=== PATIENT | female | born 1985 | race Caucasian/White ===

== ENCOUNTER 2020-01-11 15:25 | Outpatient (CLI) | payer OTHER ==
--- NOTE | 2020-01-11 16:13 | RAD ---
Lumbar spine 2 views HISTORY: Low back pain. FINDINGS: There are 5 lumbar type vertebrae. 8 degrees rightward convex curvature on the frontal view . Vertebral body heights and AP alignment are maintained. Mild osteophytosis of the lower facets. Osteophytosis of the sacroiliac joints evident. IMPRESSION : No acute osseous abnormalities are demonstrated. Mild right convex curvature.
--- NOTE | 2020-01-11 16:14 | RAD ---
Sacroiliac joints 3 views HISTORY: Pain. FINDINGS: Sacral alae are intact. Mild osteophytosis of each sacroiliac joint. Joint spaces are prese rved. No aggressive erosions. Contraceptive device projects over the uterus. IMPRESSION : Mild osteophytosis of the sacroiliac joints. No acute osseous abnormalities are demonstrated.
== END 2020-01-11 15:26 | disposition home or self-care (01) ==
LOC: BICRAD 15:25
PROVIDERS: ATTEND Internal Medicine
DX: M46.1 Sacroiliitis, not elsewhere classified (principal); M54.16 Radiculopathy, lumbar region; M25.78 Osteophyte, vertebrae; M43.9 Deforming dorsopathy, unspecified
CPT/HCPCS: 72100; 72202

== ENCOUNTER 2020-04-26 13:59 | Outpatient (CLI) | payer OTHER ==
[2020-04-26 16:19] LABS: Hemoglobin 14.3 g/dL (12.0-16.0); Mean Corpuscular HGB CONC 34.6 g/dL (32.0-36.0); Mean Corpuscular Volume 86.8 fL (78.0-98.0); Platelet Count 332 thou/uL (130-400); RBC Distribution Width 11.8 % (11.5-14.5); Red Blood Cell (RBC) Count 4.76 mill/uL (4.20-5.40); White Blood Cell (WBC) Count 10.3 thou/uL (4.8-10.8)
[2020-04-26 16:25] LABS: BHCG - Serum Negative (NEGATIVE); Pregs Control Background? CLEAR/WHITE (CLR/WHITE); Pregs Control Bar Appear? YES (CONTROL BAR)
[2020-04-26 16:39] LABS: INR-International Normal Ratio 0.9; Prothrombin Time 12.4 sec (12.0-14.7)
[2020-04-26 16:40] LABS: PTT 31.1 sec (22.9-36.1)
[2020-04-27 12:54] LABS: SARS-CoV-2 MS2 Positive; SARS-CoV-2 N Gene Negative; SARS-CoV-2 S Gene Negative; SARS-CoV-2 by NAA Not Detected (NotDetected); SARS-CoV-2 orf1ab Negative
== END 2020-04-26 14:00 | disposition home or self-care (01) ==
LOC: LABBT 13:59
PROVIDERS: ATTEND Neurological Surgery
DX: Z01.812 Encounter for preprocedural laboratory examination (principal); Z20.828 Contact with and (suspected) exposure to other viral communicable diseases; M51.16 Intervertebral disc disorders with radiculopathy, lumbar region
CPT/HCPCS: 84703; 85027; 85610; 85730; 87635; U0003

== ENCOUNTER 2020-04-29 06:53 | Day surgery (SDC) | payer OTHER ==
[2020-04-27 10:54] VITALS: BMI 35.7
--- NOTE | 2020-04-27 20:34 | HP ---
REASON FOR H AND P: Surgery on 04/29/2020, case #[id number]. HISTORY OF PRESENT ILLNESS: Ms. Bansal is a 34-year-old female with a chief complaint of lower back and left leg pain. Her pain radiates into her left gluteal muscle. Her anterior thigh and plantar feet affecting her three small toes. Symptoms started about 17 years ago related to playing sports. This past December, she said she bent over and twisted, picking up her 35 pounds daughter and felt a pop in her lower back. Currently, she can only walk about 1 to 2 blocks and has increased weakness in her left leg. This weakness is causing her to stumble more frequently. She has tried injections and physical therapy, but has not had any lasting relief. Her pain primarily runs in the S1 distribution on the left. She denies any bladder or bowel discomfort. REVIEW OF SYSTEMS: CONSTITUTIONAL: Denies fever or chills. ENT: Denies change in vision or hearing. CARDIAC: Denies chest pain, shortness of breath, or diaphoresis. PULMONARY: Denies shortness of breath, cough, or hemoptysis. GI: Denies abdominal pain, nausea, vomiting, diarrhea, or change in stool formation and consistency. : Denies trouble with urination, frequency of urination, or bloody urine. SKIN: Denies skin rash, bruising, bleeding, or skin masses. MUSCULOSKELETAL: As per history of present illness. NEUROLOGIC: As per history of present illness. PSYCHOLOGIC: Denies anxiety, depression, or behavior changes. MEDICAL HISTORY: Anxiety, depression, seasonal allergies, or asthma. SURGICAL HISTORY: Pin in right wrist at age 8, scope and removal of the right shoulder age 18, deviated septum and nasal polyps age 19, and tonsillectomy and adenoidectomy in 2014. HOSPITALIZATIONS: Childbirth x3; 2012, 2014, and 2018. FAMILY HISTORY: Father alive, diagnosed with hypertension. Mother alive, diagnosed with anxiety, OCD, mental illness. Siblings alive. Children alive, one son and two daughters, healthy. SOCIAL HISTORY: Former smoker. Social smoker. Occasionally social drinker, less than one drink a day. Denies illicit drug use. MEDICATIONS: 1. Tizanidine 2 mg. 2. Tramadol 50 mg. 3. Sertraline 100 mg. 4. Hydroxyzine 50 mg. 5. Alprazolam 0.5 mg. ALLERGIES: SULFA; VOMITING, FEVER, AND RASH. CODEINE; VOMITING, FEVER, AND RASH. KEFLEX, RASH. PHYSICAL EXAMINATION: VITAL SIGNS: Weight 232 pounds, height 68 inches, and BMI 35.27. HEENT: Pupils are equal. Extraocular movements are intact. NECK: Soft and supple. No masses are noted. Range of motion is intact and nonpainful. NEUROLOGIC: Awake, alert, and oriented x3. Memory, attention, and fund of knowledge normal. Cranial nerves grossly intact. Gait and station are normal. Motor exam, mild EHL weakness. Some TF weakness on the left. Sensory exam showed loss in S1, left. IMAGING: MRI of the lumbar spine L4-L5 and L5-S1 disk, herniated lumbar disk protrusion, center of the canal resulting in lateral recess stenosis. X-ray; flexion and extension stable. ASSESSMENT: 1. Lumbar radiculopathy. 2. Bulging lumbar disk. PLAN: 1. Laminectomy, L4-L5 and L5-S1. 2. Preop labs; CBC, PT, PTT, and COVID-19. 3. She will quit nicotine 1 month prior to surgery. INFORMED CONSENT: We discussed the indications, risks, benefits, alternatives, and expected results from surgery. The risks discussed included, but were not limited to, bleeding, infection, CSF leak, nerve damage, weakness, incontinence, cauda equina injury, arachnoiditis, paralysis, ventilator dependency, wheelchair dependency, loss of vision, cardiopulmonary complications of anesthesia or . Long-term complications discussed included, but were not limited to spinal instability and future surgery. She understands the risks and is willing to proceed. Job ID: [id number]
[2020-04-29] MEDS ORDERED: Levofloxacin 500 mg/D5W 100 ml Premix Bag ONE (07:49)
[2020-04-29] MEDS ORDERED: Clindamycin/D5W 900 mg/50 ml Premix Bag ONE ×2 (07:49→14:37)
[2020-04-29] MEDS ORDERED: Scopolamine 1.5 mg/72 hour Patch ONE (08:03)
[2020-04-29] MEDS ORDERED: EPINEPHrine 1 MG/ML AMP ONE (08:06)
[2020-04-29] MEDS ORDERED: Bupivacaine PF 0.5% 30 ML VIAL ONE (08:06)
[2020-04-29] MEDS ORDERED: Thrombin 5000 UNITS/5 ML VIAL ONE (08:06)
[2020-04-29] MEDS ORDERED: Lidocaine 2% Jelly 5 ML TUBE ONE (08:54)
[2020-04-29] MEDS ORDERED: Midazolam HCl 2 mg/2 ml Vial ONE (08:54)
[2020-04-29] MEDS ORDERED: Fentanyl 100 MCG/2 ML VIAL ONE ×2 (08:54→12:25)
[2020-04-29] MEDS ORDERED: HYDROmorphone 0.5 MG/0.5 ML SYRINGE ONE (08:54)
[2020-04-29] MEDS ORDERED: PROPOFOL 200 MG/20 ML VIAL ONE (09:18)
[2020-04-29] MEDS ORDERED: Dexamethasone 20 MG/5 ML VIAL ONE (09:18)
[2020-04-29] MEDS ORDERED: Lidocaine 1% PF 5 ML VIAL ONE (09:18)
[2020-04-29] MEDS ORDERED: Ondansetron PF 4 MG/2 ML Vial ONE ×2 (09:18→12:05)
[2020-04-29] MEDS ORDERED: Glycopyrrolate 0.2 MG/ML 5 ML SYRINGE ONE (09:18)
[2020-04-29] MEDS ORDERED: Rocuronium Bromide 10 MG/ML (10ML VIAL) ONE (09:18)
[2020-04-29] MEDS ORDERED: Promethazine HCl 25 MG/ML VIAL ONE (11:52)
[2020-04-29] MEDS ORDERED: Meperidine HCl/PF 25 MG/ML VIAL ONE (11:54)
[2020-04-29] MEDS ORDERED: Ketorolac Tromethamine 30 MG/ML VIAL ONE (12:09)
[2020-04-29] MEDS ORDERED: tiZANidine HCl 4 MG TAB ONE (13:25)
[2020-04-29] MEDS ORDERED: Morphine 2 MG/ML VIAL ONE ×2 (13:43→13:57)
--- NOTE | 2020-04-29 15:46 | OP ---
DATE OF PROCEDURE: 04/29/2020 MAINTENANCE CLERK: Joseph Montgomery PA-C PREOPERATIVE INDICATION: Treat pain and prevent neurological deterioration. PREOPERATIVE DIAGNOSIS: Lateral recess stenosis at L4-L5 and L5-S1 with neurogenic claudication. POSTOPERATIVE DIAGNOSIS: Lateral recess stenosis at L4-L5 and L5-S1 with neurogenic claudication. PROCEDURES PERFORMED: Decompressive laminectomy with medial facetectomy and foraminotomy at L3-L4 and L4-L5. PREOPERATIVE MEDICATIONS: Ancef 2 g IV. DRAIN NUMBER: Zero. DRAIN TYPE: None. DESCRIPTION OF PROCEDURE: The patient was brought to the operating room. General endotracheal anesthesia was induced. The patient was positioned prone on the operating table. The chest and hips were supported by gel-filled chest rolls. A lateral fluoro radiograph was used to plan our incision. The lumbar skin was sterilely prepped and draped. We opened with a 10 blade knife and we controlled bleeding with bipolar and monopolar cautery. We used monopolar cautery to dissect through subcutaneous tissues to the thoracodorsal fascia. We incised the fascia in the midline and we reflected the paraspinal muscles off the spinous process and lamina of L4, L5, and S1. A self-retaining retractor was placed and a lateral fluoro radiograph confirmed the levels upon which we were operating. We then used an Adson rongeur to remove the spinous process of L4, L5 and the top of the sacrum. Kerrison rongeurs were used to fashion a laminectomy down the midline. We widened our laminectomy defect. In order for the L5 and S1 nerve roots to be decompressed in the lateral recess, we had to perform medial facetectomies with Kerrison rongeurs. We performed foraminotomies over the exit points of the nerves as well. At the completion of our decompression, the nerves no longer had any impingement. We irrigated with bacitracin irrigation. We waxed the bone edges. We infused local anesthetic in the paraspinal muscles. We irrigated once again with bacitracin irrigation. Then, we closed after applied vancomycin powder to the wound. We applied a sterile dressing. This was a clean case, no contamination. Job ID: [id number]
== END 2020-04-29 16:00 | disposition home or self-care (01) ==
LOC: SDC 06:53
PROVIDERS: ATTEND Neurological Surgery
PROC: 01NB0ZZ Release Lumbar Nerve, Open Approach (ICD-10-PCS; principal; 2020-04-29)
DX: M48.062 Spinal stenosis, lumbar region with neurogenic claudication (principal); M48.07 Spinal stenosis, lumbosacral region; M51.16 Intervertebral disc disorders with radiculopathy, lumbar region; M51.17 Intervertebral disc disorders with radiculopathy, lumbosacral region; F41.9 Anxiety disorder, unspecified; F32.9 Major depressive disorder, single episode, unspecified; J45.909 Unspecified asthma, uncomplicated; Z79.899 Other long term (current) drug therapy; Z87.891 Personal history of nicotine dependence; Z88.1 Allergy status to other antibiotic agents; Z88.2 Allergy status to sulfonamides; Z88.5 Allergy status to narcotic agent
CPT/HCPCS: 76000; J0171; J1100; J1170; J1885; J1956; J2175; J2250; J2270; J2405; J2550; J2704; J3010; J3370; J3490; S0020

== ENCOUNTER 2021-01-12 09:00 | Outpatient (CLI) | payer BC | END 2021-01-12 09:01 | disposition home or self-care (01) | LOC: BICRAD 09:00 | PROVIDERS: ATTEND Internal Medicine | DX: M54.30 Sciatica, unspecified side (principal) | CPT/HCPCS: 72100 ==

== ENCOUNTER 2021-02-26 16:34 | Emergency (ER) | payer BC ==
[2021-02-26] MEDS ORDERED: Morphine 4 MG/ML VIAL ONE (17:10)
[2021-02-26 17:19] LABS: #Eosinphils 0.2 thou/uL (0.0-0.7); #Lymphocytes 2.3 thou/uL (1.20-3.40); #Monocytes 0.7 thou/uL (0.11-0.59); #Neutrophils 5.6 thou/uL (1.40-6.50); %Basophils 0.3 % (0.0-1.0); %Eosinophils 2.1 % (0.0-10.0); %Lymphocytes 26.3 % (21.0-51.0); %Monocytes 7.9 % (0.0-10.0); %Neutrophils 63.3 % (42.0-75.0); Hemoglobin 13.6 g/dL (12.0-16.0); Mean Corpuscular HGB CONC 35.5 g/dL (32.0-36.0); Mean Corpuscular Volume 87.3 fL (78.0-98.0); Mean Platelet Volume 7.5 fL (7.4-10.4); Platelet Count 288 thou/uL (130-400); Red Blood Cell (RBC) Count 4.39 mill/uL (4.20-5.40); White Blood Cell (WBC) Count 8.9 thou/uL (4.8-10.8)
[2021-02-26 17:34] LABS: ALT (SGPT) 20 U/L (8-55); AST (SGOT) 21 U/L (5-34); Albumin 4.3 g/dL (3.5-5.0); Alkaline Phosphatase 52 U/L (40-110); Anion Gap 16 mmol/L (10-20); BUN (Urea Nitrogen) 8 mg/dL (7.0-18.7); Bilirubin, Total 0.5 mg/dL (0.2-1.2); Calc. Creatinine Clearance 0 mL/min (70-130); Calcium 9.8 mg/dL (7.8-10.44); Carbon Dioxide 21 mmol/L (22-29); Chloride 106 mmol/L (98-107); Globulin 3.1 g/dL (2.4-3.5); Glucose 124 mg/dL (70-105); Potassium 4.1 mmol/L (3.5-5.1); Protein, Total 7.4 g/dL (6.0-8.3); Sodium 139 mmol/L (136-145)
[2021-02-26 17:46] LABS: BHCG - Serum Negative (NEGATIVE); Pregs Control Background? CLEAR/WHITE (CLR/WHITE); Pregs Control Bar Appear? YES (CONTROL BAR)
[2021-02-26] MEDS ORDERED: Dexamethasone 4 mg/ml Vial ONE (17:54)
[2021-02-26] MEDS ORDERED: HYDROcodone/Acetaminophen 7.5/325 mg Tablet ONE (19:56)
== END 2021-02-26 20:07 | disposition home or self-care (01) ==
LOC: ERS 16:34
DX: M54.5 Low back pain (principal); Z79.899 Other long term (current) drug therapy
CPT/HCPCS: 36415; 72148; 80053; 84703; 85025; 96374; 96375; J1100; J2270